=== PATIENT | female | born 1970 | race Caucasian/White ===

== ENCOUNTER 2023-11-24 13:32 | Emergency (ER) | payer MEDICAID, SELFPAY ==
[2023-11-24 13:34] VITALS: BP 123/90; PULSE 89; RESP 18; TEMP 35.9; O2SAT 100
[2023-11-24] MEDS: 0.9% Normal Saline (1000mL) 1,000 ML 999 ML IV ×2 (14:25→15:49)
[2023-11-24] MEDS: Ondansetron 4 MG/2 ML Vial IV (14:25)
[2023-11-24 14:33] LABS: Absolute Lymphocyte Count 1.56 X10^3/uL (0.83-4.51); Absolute Neutrophil Count 2.6 X10^3/uL (2.0-7.7); Basophil# 0.02 X10^3/uL; Basophil% 0.4 % (0-1); Eosinophil# 0.02 X10^3/uL; Eosinophils% 0.4 % (0-5); Hemoglobin 15.5 g/dL (12.0-15.0); Lymphocyte # 1.56 X10^3/ul (0.83-4.51); Lymphocyte % 31.9 % (19-41); Mean Corp Hgb Conc 33.7 g/dL (32-36); Mean Corpuscular Hgb 31.9 pg (27.0-32.0); Mean Corpuscular Volume 94.7 fL (81-99); Mean Platelet Vol. 10.6 fl (6.2-12.0); Monocyte# 0.67 X10^3/uL; Monocyte% 13.7 % (0-10); NRBC Flagged by Analyzer 0 % (0-5); Neutrophil # 2.61 X10^3/uL (2.7-7.7); Neutrophil % 53.4 % (47-70); Platelet Count 271 K/mm3 (150-450); RBC Distribution Width CV 13.4 % (11.6-14.6); RBC Distribution Width SD 47.2 fl (35.1-43.9); Red Blood Count 4.86 M/mm3 (4.2-5.4); White Blood Count 4.9 K/mm3 (4.4-11.0)
[2023-11-24 14:39] LABS: Mucous, Urine 0 SEEN /hpf (<or=2+); Red Blood Cells-Urine 0 SEEN /hpf (0-5)
[2023-11-24 14:42] LABS: Color, Urine Yellow (Yellow); Glucose, Dipstick Normal (Normal); Ketone-Dipstick 50 mg/dl (Negative); Leukocyte Esterase-Dipstick 100 /ul (Negative); Nitrite-Dipstick Negative (Negative); Occult Blood-Urine Negative /ul (Negative); Protein-Dipstick 30 mg/dl (Negative); Specific Gravity, Urine 1.015 (1.002-1.030); Urine Bilirubin Dipstick Negative (Negative); Urine Clarity Clear (Clear); Urine Urobilinogen 4 mg/dl (Normal)
--- NOTE | 2023-11-24 14:42 | EX.ED.DYSGE1 ---
HPI History of Present Illness Chief Complaint: General Illness Informant: patient and family Narrative Narrative: 53-year-old female presenting to the emergency room with 10 days diarrhea body aches dry heaves/vomiting. She states that last Saturday she began to not feel well and diarrhea began. She states it has been difficult to keep any Food down but she has been trying to drink liquids. She denies any abdominal pain. No significant cough or sore throat. She notes a slight headache. No rashes. PFSH PFSH Allergy/AdvReac Type Severity Reaction Status Date / Time morphine Allergy Anaphylaxis Verified 11/24/23 13:35 codeine AdvReac Nausea/Vom/ Verified 11/24/23 13:35 Diarrhea Social History Smoking Status: Never smoker ROS ROS ED Constitutional Constitutional ED: Reports chills; Denies fever(s) or weight loss Eyes Eyes: Denies change in vision or diplopia ENT ENT ED: Reports rhinorrhea and other Details: Dry mouth ; Denies ear pain or sore throat Cardiovascular Cardiovascular: Denies chest pain, orthopnea, palpitations or racing heartbeat Respiratory/Chest Respiratory/Chest: Denies cough, dyspnea or orthopnea Gastrointestinal Gastrointestinal: Reports diarrhea, nausea and vomiting; Denies abdominal pain Genitourinary Genitourinary ED: Denies dysuria, hematuria or urinary frequency Musculoskeletal Musculoskeletal: Reports myalgias; Denies arthralgias Integumentary Denies abscess or rash Neurologic Neurologic: Reports headache(s); Denies weakness Psychiatric Psychiatric: Denies anxiety, depression, suicidal ideation or suicidal thoughts Endocrine Endocrinology: Denies polydipsia, polyphagia or polyuria Allergic/Immunologic Allergic/Immunologic ED: Denies mouth swelling, tongue swelling or urticaria EXAM Physical Exam Const Vital Signs: 11/24/23 13:34 11/24/23 14:04 Temperature 96.6 F L Temperature Source Temporal Pulse Rate 89 Respiratory Rate 18 Respiratory Effort Normal Respiratory Pattern Normal Blood Pressure 123/90 H Blood Pressure Mean 101 Pulse Ox 100 Oxygen Delivery Method Room Air Positive well nourished and well developed General Appearance ED: well developed HEENT Reports normocephalic, head/scalp atraumatic and dry mucous membranes Mouth ED: Yes dry mucous membranes Mouth: dry mucous membranes Eyes PERRL and EOMs intact bilaterally Neck no lymphadenopathy, supple and no JVD Resp normal respiratory effort and clear to auscultation bilaterally Cardio regular rate, regular rhythm and no murmurs GI normal to inspection, nondistended, normoactive bowel sounds and non-tender Palpation: soft Back/Spine no CVA tenderness and normal ROM Extremity normal to inspection General Extremety ED: Negative for edema General Extremity: Negative for edema Neuro oriented x3 and CN's II-XII intact bilaterally Sensorium / Orientation: alert Motor Exam: strength 5/5 throughout Psych mental status grossly normal Mood & Affect: Negative for depressed or tearful Skin no rashes or lesions noted and no wounds MDM MDM MDM Narrative Medical decision making narrative: Patient received IV fluids and Zofran. Basic blood work shows a hemoglobin 15.5 and a white count of 4.9. BMP with a glucose of 113. Liver enzymes and lipase show an ALT of 62. Urinalysis shows specific gravity 1.015. 50 ketones. 2+ bacteria but no overt infection. She is otherwise asymptomatic from a cystitis standpoint. Nursing reported that we began to have a panic attack. She received a milligram of Ativan IV. Patient was reassessed and is doing better. We able to collect a stool specimen and was sent to the lab for evaluation. These results are still pending. Clinically however the patient's not hypotensive or tachycardic. She has no significant electrolyte disturbance CO2 is 27. White count is normal. I will write for Zofran. Would recommend Imodium as needed. Oral hydration. Return if worsening or concerns History & Record Review Discussion w/independent historian: Patient and Family Lab Data Attestation: I reviewed the patient's lab results. Labs: Laboratory Results - last 24 hr 11/24/23 11/24/23 14:28 14:36 WBC 4.9 RBC 4.86 Hgb 15.5 H Hct 46.0 MCV 94.7 MCH 31.9 MCHC 33.7 RDW Std Deviation 47.2 H RDW Coeff of Vignesh 13.4 Plt Count 271 MPV 10.6 Immature Gran % (Auto) 0.200 Neut % (Auto) 53.4 Lymph % (Auto) 31.9 [place] % (Auto) 13.7 H Eos % (Auto) 0.4 Baso % (Auto) 0.4 Absolute Neuts (auto) 2.6 Absolute Lymphs (auto) 1.56 Nucleated RBC % 0 Sodium 139 Potassium 3.5 Chloride 106 Carbon Dioxide 27.0 Anion Gap 6 BUN 12 Creatinine 0.64 Est GFR (MDRD) Af Amer 125 Est GFR (MDRD) Non-Af 103 BUN/Creatinine Ratio 18.8 Glucose 113 H Calcium 9.6 Total Bilirubin 1.00 Direct Bilirubin 0.28 AST 22 ALT 62 H Alkaline Phosphatase 60 Total Protein 7.3 Albumin 3.6 Globulin 3.7 Lipase 27 Urine Color Yellow Urine Clarity Clear Urine pH 9.0 Ur Specific [place] 1.015 Urine Protein 30 H Urine Glucose (UA) Normal Urine Ketones 50 H Urine Occult Blood Negative Urine Nitrite Negative Urine Bilirubin Negative Urine Urobilinogen 4 H Ur Leukocyte Esterase 100 H Urine RBC 0 SEEN Urine WBC 0-5 SEEN Ur Squamous Epith Cells 0-5 SEEN Urine Bacteria 2+ Urine Mucus 0 SEEN Discharge Plan Triage Chief Complaint: General Illness ED Provider: Albert Chan Dx/Rx/DC Orders Primary Care Provider: Paula Watson,Out of Referrals: Paula Watson,Out of [Primary Care Provider] -
[2023-11-24 14:57] LABS: Bacteria 2+ /hpf (None Seen); Squamous Epithelial Cells - UA 0-5 SEEN /hpf (5-10); White Blood Cells 0-5 SEEN /hpf (0-5)
[2023-11-24 15:02] LABS: AST(SGOT) 22 U/L (15-37); Alanine Aminotransfer ALT/SGPT 62 U/L (13-56); Albumin, Serum 3.6 g/dL (3.2-5.0); Alkaline Phosphatase 60 U/L (45-117); Anion Gap 6 (5-15); BUN 12 mg/dL (7-18); BUN/Creat Ratio 18.8 RATIO (10-20); Bilirubin, Direct 0.28 mg/dL (0.00-0.30); Calcium,Total 9.6 mg/dL (8.5-10.1); Chloride 106 mmol/L (98-107); Creatinine, Serum 0.64 mg/dL (0.55-1.02); EST Glomerular Filtration Rate 103 mL/min (>60); Est Glom Filt Rate - Afr Amer 125 mL/min (>60); Globulin 3.7 g/dL (2.2-4.2); Glucose 113 mg/dL (74-106); Lipase 27 U/L (13-75); Potassium 3.5 mmol/L (3.5-5.1); Protein, Total 7.3 g/dL (6.4-8.2); Sodium Level 139 mmol/L (136-145)
[2023-11-24] MEDS: LORazepam 2 MG/ML Syringe 1 MG IV (15:48)
[2023-11-24 16:33] VITALS: BP 126/78; PULSE 64; RESP 14; O2SAT 98
== END 2023-11-24 17:12 | disposition home or self-care (01) ==
PROVIDERS: Emergency Provider Emergency Medicine; Visit Provider Emergency Medicine
DX: R19.7 Diarrhea, unspecified (principal); R11.10 Vomiting, unspecified; R51.9 Headache, unspecified
CPT/HCPCS: 80048; 80076; 81001; 83630; 83690; 85025; 87177; 87209; 87506; 96361; 96374; 96375; 99282; J7030; A4216; J2405

== ENCOUNTER 2024-01-20 15:20 | Emergency (ER) | payer MEDICAID, SELFPAY ==
[2024-01-20 15:21] VITALS: BP 118/86; PULSE 96; RESP 16; TEMP 36.4; O2SAT 100; BMI 23.1
[2024-01-20 16:17] LABS: Absolute Lymphocyte Count 2.19 X10^3/uL (0.83-4.51); Absolute Neutrophil Count 6.7 X10^3/uL (2.0-7.7); Basophil# 0.03 X10^3/uL; Basophil% 0.3 % (0-1); Eosinophil# 0.02 X10^3/uL; Eosinophils% 0.2 % (0-5); Hematocrit 50.9 % (37-47); Hemoglobin 17.2 g/dL (12.0-15.0); Lymphocyte # 2.19 X10^3/ul (0.83-4.51); Lymphocyte % 22.2 % (19-41); Mean Corp Hgb Conc 33.8 g/dL (32-36); Mean Corpuscular Hgb 32.4 pg (27.0-32.0); Mean Corpuscular Volume 95.9 fL (81-99); Monocyte# 0.89 X10^3/uL; NRBC Flagged by Analyzer 0 % (0-5); Neutrophil # 6.71 X10^3/uL (2.7-7.7); Neutrophil % 68.1 % (47-70); Platelet Count 358 K/mm3 (150-450); RBC Distribution Width CV 14.1 % (11.6-14.6); RBC Distribution Width SD 49.8 fl (35.1-43.9); Red Blood Count 5.31 M/mm3 (4.2-5.4); White Blood Count 9.9 K/mm3 (4.4-11.0)
[2024-01-20 16:22] LABS: Amphetamine Urine VISTA NEGATIVE (<1000 ng/mL); Barbiturate Urine VISTA NEGATIVE (< 200 ng/mL); Benzodiazepine Urine VISTA POSITIVE (< 200 ng/mL); Cocaine Urine VISTA NEGATIVE (< 300 ng/mL); Ecstacy Urine VISTA NEGATIVE (< 500 ng/mL); Methadone Urine VISTA NEGATIVE (< 300 ng/mL); PCP Urine VISTA NEGATIVE (< 25 ng/mL); THC Urine VISTA POSITIVE (< 50 ng/mL); Vista UDS pH Range 6
[2024-01-20 16:23] LABS: Anion Gap 6 (5-15); BUN 12 mg/dL (7-18); Calcium,Total 9.9 mg/dL (8.5-10.1); Chloride 108 mmol/L (98-107); Creatinine, Serum 0.92 mg/dL (0.55-1.02); EST Glomerular Filtration Rate 67 mL/min (>60); Est Glom Filt Rate - Afr Amer 81 mL/min (>60); Estimated Creatinine Clearance 57.83 ml/min; Glucose 120 mg/dL (74-106); Potassium 3.3 mmol/L (3.5-5.1); Sodium Level 139 mmol/L (136-145)
[2024-01-20 16:58] LABS: Internal QC Validated? YES +Cl - CLEAR BKGD; Pregnancy, Serum, hCG Quali. NEGATIVE Negative
[2024-01-20 17:00] LABS: Alcohol, Blood (Medical)-Serum < 3.0 mg/dL
--- NOTE | 2024-01-20 17:06 | EX.ED.VIS.PS ---
HPI HPI - Psych History of Present Illness Chief Complaint: Suicidal Narrative Narrative: 53-year-old female with history of depression, anxiety, PTSD presenting for evaluation of suicidal thoughts. Patient presents with her and her son and stated that she wanted to kill herself. She has no known triggers that cause her to feel this way. She states the last time she attempted to kill himself was in June when she took some medications. She states he was not hospitalized for this. Patient states she had increased dosing of gabapentin from 400-800 she thinks this might of caused her symptoms. She did speak with the counseling center from [place] where she was from as she still sees them. She does not see local counseling center. They recommended that she come to the ER and called the police for her to be picked up. She admitted on the phone that she was going to take pills to ingest and try to kill herself. She denies homicidal ideation. PFSH PFS Home Medications azelastine 137 mcg-fluticasone 50 mcg/spray nasal spray (Dymista) 1 spray intranasal BID 01/20/24 [History Last Taken Unknown] baclofen 10 mg tablet 10 mg PO TID 01/20/24 [History Last Taken Unknown] escitalopram oxalate 20 mg tablet 20 mg PO DAILY 01/20/24 [History Last Taken Unknown] gabapentin 800 mg tablet 800 mg PO TID 01/20/24 [History Last Taken Unknown] hydrochlorothiazide 25 mg tablet 25 mg PO DAILY 01/20/24 [History Last Taken Unknown] levothyroxine 25 mcg tablet 25 mcg PO DAILY 01/20/24 [History Last Taken Unknown] lorazepam 0.5 mg tablet 0.5 mg PO Q8H anxiety 01/20/24 [History Last Taken Unknown] metoprolol succinate 50 mg tablet,extended release 24 hr 50 mg PO DAILY 01/20/24 [History Last Taken Unknown] naproxen 500 mg tablet 500 mg PO TID 01/20/24 [History Last Taken Unknown] omeprazole 40 mg capsule,delayed release 40 mg PO BID 01/20/24 [History Last Taken Unknown] tramadol 37.5 mg-acetaminophen 325 mg tablet 1 tab PO TID 01/20/24 [History Last Taken Unknown] Allergy/AdvReac Type Severity Reaction Status Date / Time morphine Allergy Anaphylaxis Verified 01/20/24 15:21 codeine AdvReac Nausea/Vom/ Verified 01/20/24 15:21 Diarrhea Social History Smoking Status: Never smoker ROS ROS ED Constitutional Constitutional ED: Denies chills, fever(s) or sweats Eyes Eyes: Denies blurry vision or change in vision ENT ENT ED: Denies ear pain or sore throat Cardiovascular Cardiovascular: Denies chest pain, palpitations or racing heartbeat Respiratory/Chest Respiratory/Chest: Denies cough, dyspnea or sputum Gastrointestinal Gastrointestinal: Denies abdominal pain, constipation, diarrhea, nausea or vomiting Genitourinary Genitourinary ED: Denies dysuria, hematuria or urinary frequency Musculoskeletal Musculoskeletal: Denies arthralgias, myalgias or neck pain Integumentary Denies abscess, Abrasions or rash Neurologic Neurologic: Denies headache(s), paresthesias or weakness Psychiatric Psychiatric: Reports anxiety, depression, suicidal ideation and suicidal thoughts Endocrine Endocrinology: Denies polydipsia or polyuria EXAM Physical Exam Const Vital Signs: 01/20/24 15:21 01/20/24 19:53 Temperature 97.5 F L 98.1 F Temperature Source Temporal Temporal Pulse Rate 96 69 Respiratory Rate 16 18 Blood Pressure 118/86 H Blood Pressure Mean 96 Pulse Ox 100 96 Oxygen Delivery Method Room Air Room Air Positive well nourished General Appearance ED: Negative for pallor HEENT Reports moist mucous membranes normocephalic Eyes PERRL and EOMs intact bilaterally Resp normal respiratory effort Auscultation: Negative for rales or rhonchi Cardio Rate: regular rate Neuro oriented x3 and CN's II-XII intact bilaterally Sensorium / Orientation: alert Psych mental status grossly normal Appearance: grossly normal Attitude: agitated Activity / Motor Behavior: appropriate eye contact Mood & Affect: anxious Thought Process: No incoherent, No confused, No flight of ideas and No racing thoughts Thought Content: suicidality, No homicidality, No phobia(s), No delusion(s) and No hallucination(s) Attention / Concentration: attention grossly intact Memory / Cognition: memory grossly intact Insight: poor Judgement: poor Skin General Skin Exam: Negative for jaundice or pallor MDM MDM MDM Narrative Medical decision making narrative: Patient presenting for suicidal thoughts. She has a plan to kill herself by ingesting medications. She states she has felt this way in the past. No previous hospitalizations. Given that she has suicidal ideations with a plan and intent she will be pink slipped. Appropriate screening lab work will be obtained. CBC, BMP unremarkable with exception of potassium of 3.3. This will be repleted orally. Urine drug screen positive for benzodiazepines which she is prescribed and cannabinoids. EtOH negative. Patient medically cleared at this time. Patient seen by crisis. Plan is to admit. Patient was given Zofran and Phenergan as she had some nausea. Patient also given hydroxyzine for anxiety. She is admitted to [facility]. She will be transported when a bed becomes available. Impression: 1. Suicidal ideation 2. Depression 3. Hypokalemia Lab Data Labs: Laboratory Results - last 24 hr 01/20/24 15:35 WBC 9.9 RBC 5.31 Hgb 17.2 H Hct 50.9 H MCV 95.9 MCH 32.4 H MCHC 33.8 RDW Std Deviation 49.8 H RDW Coeff of Vignesh 14.1 Plt Count 358 MPV 10.0 Immature Gran % (Auto) 0.200 Neut % (Auto) 68.1 Lymph % (Auto) 22.2 [place] % (Auto) 9.0 Eos % (Auto) 0.2 Baso % (Auto) 0.3 Absolute Neuts (auto) 6.7 Absolute Lymphs (auto) 2.19 Nucleated RBC % 0 Sodium 139 Potassium 3.3 L Chloride 108 H Carbon Dioxide 25.0 Anion Gap 6 BUN 12 Creatinine 0.92 Estim Creat Clear Calc 57.83 Est GFR (MDRD) Af Amer 81 Est GFR (MDRD) Non-Af 67 BUN/Creatinine Ratio 13.0 Glucose 120 H Calcium 9.9 Serum , Qual NEGATIVE Urine Opiates Screen NEGATIVE Urine Methadone Screen NEGATIVE Ur Barbiturates Screen NEGATIVE Ur Phencyclidine Scrn NEGATIVE Ur Amphetamines Screen NEGATIVE MDMA (Ecstasy) Screen NEGATIVE U Benzodiazepines Scrn POSITIVE H Urine Cocaine Screen NEGATIVE U Cannabinoids Screen POSITIVE H Ur Drug Screen Comment Ethyl Alcohol < 3.0 Discharge Plan Triage Chief Complaint: Suicidal ED Provider: Vinicio Dubon Dx/Rx/DC Orders Prescriptions: No Action omeprazole 40 mg capsule,delayed release(DR/EC) 40 mg PO BID Patient Comments: take 1 capsule by mouth twice a day levothyroxine 25 mcg tablet 25 mcg PO DAILY Patient Comments: take 1 tablet by mouth once daily escitalopram oxalate 20 mg tablet 20 mg PO DAILY Patient Comments: take 1 tablet by mouth once daily hydrochlorothiazide 25 mg tablet 25 mg PO DAILY Patient Comments: take 1 tablet by mouth once daily metoprolol succinate 50 mg tablet extended release 24 hr 50 mg PO DAILY Patient Comments: take 1 tablet by mouth once daily gabapentin 800 mg tablet 800 mg PO TID Patient Comments: take 1 tablet by mouth three times a day baclofen 10 mg tablet 10 mg PO TID Patient Comments: take 1 tablet by mouth three times a day ---IN PLACE OF TIZANIDINE naproxen 500 mg tablet 500 mg PO TID Patient Comments: take 1 tablet by mouth twice a day IN PLACE OF CELEBREX tramadol-acetaminophen 37.5-325 mg tablet 1 tab PO TID Patient Comments: take 1 tablet by mouth three times a day lorazepam 0.5 mg tablet 0.5 mg PO Q8H Patient Comments: take 1 tablet by mouth every 8 hours azelastine-fluticasone [Dymista] 137-50 mcg/spray spray,non-aerosol 1 spray intranasal BID Rx Instructions: administer into each nostril Primary Care Provider: Care Physician,No Primary Referrals: Care Physician,No Primary [Primary Care Provider] -
--- NOTE | 2024-01-20 17:34 | ED.RN ---
[facility]ED [facility] TO MAKE [facility] AWARE PT WILL NEED EVALUATED. FAXED MEDICAL CLEARANCE TO THEM.
--- NOTE | 2024-01-20 18:28 | ED.RN ---
RAMON FROM [facility] CALLED, STATED KYLER WILL BE OVER TO EVALUATE AFTER HANDLING SOMETHING ELSE IN THE COMMUNITY.
[2024-01-20] MEDS: Potassium Chloride Oral Tablet 20 MEQ PO (18:29)
[2024-01-20] MEDS: Ondansetron ODT 4 MG Tablet PO (19:46)
[2024-01-20 19:53] VITALS: PULSE 69; RESP 18; TEMP 36.7; O2SAT 96
[2024-01-20] MEDS: proMETHazine 25 MG/ML Syringe 6.25 MG IM (20:57)
[2024-01-20] MEDS: hydrOXYzine PAM 25 MG Capsule PO (22:13)
[2024-01-20 23:17] VITALS: BP 125/80; PULSE 94; RESP 18; TEMP 36.7; O2SAT 99
--- NOTE | 2024-01-21 00:48 | ED.RN ---
Pt requested meds earlier tonight for anxiety. Vistaril was prescribed. Pt reports it did not help and wants meds to knock her out . Dr Dubon did not prescribe any new meds. The patient threw her phone on the floor and her wrist band fell off .
[2024-01-21] MEDS: LORazepam 1 MG Tablet 2 MG PO (01:08)
[2024-01-21 03:00] VITALS: PULSE 70; RESP 18; TEMP 36.2; O2SAT 96
--- NOTE | 2024-01-21 04:38 | ED.RN ---
Report given to Katelyn MUNROE at [facility].
[2024-01-21 05:44] VITALS: BP 96/66; PULSE 56; RESP 16; TEMP 36.9; O2SAT 99
[2024-01-21] MEDS: Levothyroxine 25 MCG TABLET PO (05:44)
[2024-01-21 07:00] VITALS: RESP 16
[2024-01-21] MEDS: hydroCHLOROthiazide 25 MG Tablet PO (07:37)
[2024-01-21] MEDS: Metoprolol(XL)Succ 50 MG Tablet PO (07:37)
[2024-01-21 07:41] VITALS: BP 108/71; PULSE 76; RESP 16; O2SAT 95
[2024-01-21 08:32] VITALS: BP 108/71; PULSE 76; RESP 16; TEMP 36.9; O2SAT 95
== END 2024-01-21 08:41 ==
PROVIDERS: Emergency Provider Student in an Organized Health Care Education/Training Program; Visit Provider Student in an Organized Health Care Education/Training Program
DX: F32.A Depression, unspecified (principal); E87.6 Hypokalemia; F41.9 Anxiety disorder, unspecified; R45.851 Suicidal ideations; Z79.899 Other long term (current) drug therapy
CPT/HCPCS: 80048; 80307; 80320; 84703; 85025; 96372; 99285; G0480

== ENCOUNTER → 2025-06-30 | Outpatient (CLI) | payer MEDICARE, MEDICAID, SELFPAY ==
--- NOTE | 2025-06-30 12:53 | MRI_ITS ---
PROCEDURE: SPINE LUMBAR (ROUTINE) 06/30/2025 REASON FOR EXAM: PAIN TECHNIQUE: SPINE LUMBAR (ROUTINE) COMPARISON: Lumbar spine x-ray, 03/12/2025. FINDINGS: Vertebrae: There are no compression fractures. Alignment: There is maintenance of the normal lumbar lordosis. Conus Medullaris: The conus medullaris terminates normally at the mid T12 level. There is narrowing of the intervertebral discs at T10-11 and T11-12. T12-L1: There is a broad-based central disc protrusion. There is almost complete loss of the intervertebral disc space. There is compression of the thecal sac without central canal stenosis. There is abnormal endplate signal on either side of the T12-L1 intervertebral disc consistent with a mixture of bone marrow edema and endplate sclerosis, Modic type 1 and Modic type 3 signal, respectively. There is bilateral facet arthropathy with ligamentum flavum bulging.. There is moderate lateral recess stenosis and foraminal narrowing on the left. There is mild lateral recess stenosis and foraminal narrowing on the right. L1-2: The intervertebral disc is unremarkable. There is no disc bulge or disc protrusion. There is facet arthropathy bilaterally with ligamentum flavum bulging. There is no central canal stenosis, lateral recess stenosis or foraminal narrowing. L2-3: There is mild disc degeneration. There is circumferential disc bulging. There is bilateral facet arthropathy with ligamentum flavum bulging. There is mild compression of the thecal sac without central canal stenosis. There is mild lateral recess stenosis bilaterally. There is no foraminal narrowing. L3-4: There is mild disc degeneration. There is circumferential disc bulging with mild compression of thecal sac. There is bilateral facet arthropathy with ligamentum flavum bulging. There is no lateral recess stenosis. There is mild foraminal narrowing, bilaterally. There is a broad-based left lateral recess and left foraminal disc protrusion. There is central canal stenosis with the AP dimension of the spinal canal measuring 8 mm. There is bilateral facet arthropathy with ligamentum flavum bulging. There is moderate lateral recess stenosis and moderate foraminal narrowing on the left. There is mild foraminal narrowing on the right. L4-5: There is moderate disc degeneration. There is a broad-based central disc protrusion. There is bilateral facet arthropathy with ligamentum flavum bulging and there are centrally oriented osteophytes. There is a large amount of fluid in both facet joints. There is severe central canal stenosis. The AP dimension of the spinal canal is 8 mm. There is moderate lateral recess stenosis and severe foraminal narrowing bilaterally. L5-S1: There is severe disc degeneration. There is a broad-based central disc protrusion. There is a large anterior disc protrusion. There is abnormal endplate signal on either side of the L5-S1 intervertebral disc consistent with fatty infiltration and endplate sclerosis, Modic type 2 and type 3 signal, respectively. There is bilateral facet arthropathy with ligamentum flavum bulging. There is central canal stenosis with the AP dimension of the spinal canal measuring 8 mm. There is mild lateral recess stenosis and moderate foraminal narrowing bilaterally. Sacrum: There has been fusion of the right SI joint. There is a cortical cyst in the interpolar region of the left kidney. The paravertebral soft tissues are otherwise unremarkable. MRI/Spine Lumbar (Routine) IMPRESSION: 1. Diffuse degenerative disc disease with central canal stenosis L3-4 through L5-S1. 2. There is lateral recess stenosis and foraminal narrowing at multiple levels as described. 3. There is abnormal endplate signal at the T12-L1 and L5-S1 levels, which can be symptomatic. 4. Other findings as noted. Reading Location: [id number]
== END | disposition home or self-care (01) ==
LOC: OPMRI 12:52
PROVIDERS: PCP Family Medicine; Referring Provider Orthopaedic Surgery Orthopaedic Surgery of the Spine; Visit Provider Orthopaedic Surgery Orthopaedic Surgery of the Spine
DX: Z98.1 Arthrodesis status (principal); M54.16 Radiculopathy, lumbar region; M43.16 Spondylolisthesis, lumbar region
CPT/HCPCS: 72148

== ENCOUNTER 2025-07-20 15:30 | Outpatient (RCR) | payer MEDICAID, MEDICARE, SELFPAY ==
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
== END 2025-07-20 19:00 | disposition home or self-care (01) ==
LOC: PT 15:30
PROVIDERS: PCP Family Medicine; Referring Provider Orthopaedic Surgery Orthopaedic Surgery of the Spine; Visit Provider Orthopaedic Surgery Orthopaedic Surgery of the Spine
DX: Z98.1 Arthrodesis status (principal); M47.26 Other spondylosis with radiculopathy, lumbar region
CPT/HCPCS: 97113; 97162; 97530